=== PATIENT | male | born 1965 | race Caucasian/White ===

== ENCOUNTER → 2021-01-19 10:27 | Outpatient (CLI) | payer OTHER, SELFPAY ==
--- NOTE | 2021-01-19 10:29 | DI.RAD.S_ITS ---
PROCEDURE: XR HAND RT MIN 3V INDICATIONS: joint pain TECHNIQUE: 3 views of the hand(s) acquired. COMPARISON: None. FINDINGS: Bones: No fractures or dislocations. Carpal bones are normally aligned. No suspicious bony lesions. Soft tissues: No suspicious soft tissue calcifications. IMPRESSION: No acute osseous abnormality. Dictated by: Yovani Ruano M.D. on 01/19/2021 at 11:55 Approved by: Yovani Ruano M.D. on 01/19/2021 at 11:56
--- NOTE | 2021-01-19 10:29 | DI.RAD.S_ITS ---
PROCEDURE: XR HAND LT MIN 3V INDICATIONS: joint pain TECHNIQUE: 3 views of the hand(s) acquired. COMPARISON: None. 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 No acute, displaced fracture or dislocation.. Carpal bones are normally aligned. No suspicious bony lesions. Soft tissues: No suspicious soft tissue calcifications. IMPRESSION: No acute osseous abnormality. Dictated by: Yovani Ruano M.D. on 01/19/2021 at 11:54 Approved by: Yovani Ruano M.D. on 01/19/2021 at 11:55
[2021-01-19 11:48] LABS: Add Manual Diff / Slide Review NO; Basophils Absolute Auto 0 /uL (0-100); Basophils Percent Auto 0.6 % (0-2); Eosinophils Absolute Auto 100 /uL (0-450); Eosinophils Percent Auto 1.8 % (2-4); Hematocrit 39.3 % (41-53); Hemoglobin 13.4 g/dL (13.5-17.5); Lymphocytes Absolute Auto 1400 /uL (1100-4500); Lymphocytes Percent Auto 27.2 % (25-40); Mean Corpuscular HGB Conc 34.1 % (30-36); Mean Corpuscular Hemoglobin 30.8 PG (26-34); Mean Corpuscular Volume 90.5 fL (80-100); Monocytes Absolute Auto 500 /uL (0-900); Monocytes Percent Auto 8.9 % (3-14); Neutrophils Absolute Auto 3100 /uL (1500-7000); Neutrophils Percent Auto 61.5 % (50-75); Platelet Count 225 X10^3/uL (150-400); Red Blood Cell Count 4.34 X10^6/uL (4.5-5.9); Red Cell Distribution Width 13.4 % (11.6-14.8); White Blood Cell Count 5.1 X10^3/uL (4.5-11.0)
[2021-01-19 12:14] LABS: Alanine Aminotransferase 44 IU/L (<50); Albumin 4.2 g/dL (3.5-5.0); Albumin Globulin Ratio 1.6 (1.0-2.8); Alkaline Phosphatase 89 U/L (38-126); Aspartate Aminotransferase 55 IU/L (17-59); BUN Creatinine Ratio 26.1 (6-22); Bilirubin Total 0.3 mg/dL (0.2-1.3); Blood Urea Nitrogen 23 mg/dL (9-20); C-Reactive Protein Quant 1.5 mg/dL (<1.0); Carbon Dioxide 31 mmol/L (22-32); Chloride 103 mmol/L (98-107); Cholesterol 197 mg/dL (140-199); Estimated Glomerular Filt Rate > 60.0 mL/min (>60); Globulin 2.6 g/dL (1.7-4.1); Glucose 102 mg/dL (70-100); HDL Cholesterol 52 mg/dL (40-60); HEMOLYSIS < 15 (0-50); LDL Cholesterol Calculated 107 mg/dL (<100); Potassium 4.5 mmol/L (3.4-5.1); Sodium 140 mmol/L (137-145); Total Protein 6.8 g/dL (6.3-8.2); Triglycerides 192 mg/dL (35-150)
[2021-01-19 12:29] LABS: Erythrocyte Sedimentation Rate 13 MM/HR (0-15)
[2021-01-19 12:39] LABS: TSH w/ Reflex to FT4 1.65 uIU/mL (0.47-4.68)
== END ==
PROVIDERS: PCP Family Medicine; Referring Provider Family Medicine; Visit Provider Family Medicine
DX: L40.50 Arthropathic psoriasis, unspecified (principal); K14.0 Glossitis; M25.542 Pain in joints of left hand; M25.541 Pain in joints of right hand
CPT/HCPCS: 36415; 73130; 80053; 80061; 84443; 85025; 85651; 86140; 86160

== ENCOUNTER → 2021-04-02 07:39 | Outpatient (CLI) | payer OTHER, SELFPAY ==
--- NOTE | 2021-04-02 07:42 | DI.MRI.S_ITS ---
PROCEDURE: MR HEAD/BRAIN WO CON INDICATIONS: coordination of left hand, tongue swelling, tremor TECHNIQUE: Noncontrast axial T1 spin echo, axial T2 fast spin echo, sagittal and axial FLAIR, coronal T2 fast spin echo, axial gradient echo, axial diffusion and ADC through the brain. COMPARISON: None. FINDINGS: Image quality: Excellent. CSF Spaces: Basal cisterns are patent. No extra-axial fluid collections. Ventricles are normal in size and shape. Brain: No intracranial masses or hemorrhage. Foci of increased T2 signal noted in the periventricular and corpus callosum white matter. T2 signal abnormality in the left parietal periventricular white matter has a longitudinal orientation perpendicular to the long axis of the lateral ventricles. Punctate foci of increased T2 signal noted in the left middle cerebellar hemisphere and the right yaron. Huang/white matter interface is normal. Brainstem appears normal. Diffusion-weighted images demonstrate no acute ischemic insult. No chronic ischemic insults. Normal intravascular flow voids are present. Skull and face: Calvarium has normal marrow signal. Orbits appear normal. Sinuses: Sinuses and mastoids are clear. IMPRESSION: Foci of increased T2 signal involving the corpus callosum, periventricular white matter, left middle cerebellar peduncle and right yaron. Lesions have imaging characteristics highly suspicious for multiple sclerosis. Dictated by: Jamilah Weir MD, PhD on 04/02/2021 at 8:33 Approved by: Jamilah Weir MD, PhD on 04/02/2021 at 8:42
== END ==
PROVIDERS: PCP Family Medicine; Referring Provider Family Medicine; Visit Provider Family Medicine
DX: R25.1 Tremor, unspecified (principal); R27.8 Other lack of coordination
CPT/HCPCS: 70551

== ENCOUNTER 2021-04-02 09:55 | Emergency (ER) | payer OTHER, SELFPAY ==
[2021-04-02] VITALS (9 sets, daily range): BP systolic 114–143; BP diastolic 70–80; PULSE 64–78; RESP 18–22; TEMP 36.6; O2SAT 92–100; BMI 27.8
--- NOTE | 2021-04-02 10:02 | DI.RAD.S_ITS ---
PROCEDURE: XR CHEST 1V INDICATIONS: arm pain, chest pain TECHNIQUE: One view of the chest was acquired. COMPARISON: None. FINDINGS: Surgical changes and devices: None. Lungs and pleura: No consolidation, pleural effusions or pneumothorax. Mediastinum: Mediastinal contours appear normal. Heart size is normal. Bones and chest wall: No suspicious bony lesions. Overlying soft tissues appear unremarkable. IMPRESSION: No acute cardiopulmonary abnormality. Dictated by: Yovani Ruano M.D. on 04/02/2021 at 10:11 Approved by: Yovani Ruano M.D. on 04/02/2021 at 10:11
[2021-04-02] MEDS: LORazepam 2 MG/ML INJ 0.5 MG IV (10:12)
[2021-04-02 10:28] LABS: Add Manual Diff / Slide Review NO; Basophils Absolute Auto 0 /uL (0-100); Basophils Percent Auto 0.6 % (0-2); Eosinophils Absolute Auto 0 /uL (0-450); Eosinophils Percent Auto 0.4 % (2-4); Hematocrit 42.1 % (41-53); Hemoglobin 14.6 g/dL (13.5-17.5); Lymphocytes Absolute Auto 1200 /uL (1100-4500); Lymphocytes Percent Auto 22.9 % (25-40); Mean Corpuscular HGB Conc 34.6 % (30-36); Mean Corpuscular Hemoglobin 31.1 PG (26-34); Mean Corpuscular Volume 89.7 fL (80-100); Monocytes Absolute Auto 200 /uL (0-900); Monocytes Percent Auto 4.5 % (3-14); Neutrophils Absolute Auto 3800 /uL (1500-7000); Neutrophils Percent Auto 71.6 % (50-75); Platelet Count 228 X10^3/uL (150-400); White Blood Cell Count 5.4 X10^3/uL (4.5-11.0)
[2021-04-02 10:37] LABS: Alanine Aminotransferase 22 IU/L (<50); Albumin 4.6 g/dL (3.5-5.0); Albumin Globulin Ratio 1.7 (1.0-2.8); Alkaline Phosphatase 78 U/L (38-126); Aspartate Aminotransferase 27 IU/L (17-59); BUN Creatinine Ratio 13.5 (6-22); Bilirubin Total 0.7 mg/dL (0.2-1.3); Blood Urea Nitrogen 14 mg/dL (9-20); Calcium 9.5 mg/dL (8.4-10.2); Carbon Dioxide 20 mmol/L (22-32); Chloride 107 mmol/L (98-107); Estimated Glomerular Filt Rate > 60.0 mL/min (>60); Globulin 2.7 g/dL (1.7-4.1); Glucose 158 mg/dL (70-100); HEMOLYSIS < 15 (0-50); Potassium 3.7 mmol/L (3.4-5.1); Sodium 137 mmol/L (137-145); Total Protein 7.3 g/dL (6.3-8.2)
[2021-04-02 10:49] LABS: Troponin I < 0.012 ng/mL (0.01-0.034)
--- NOTE | 2021-04-02 10:54 | ED.ANXIETY ---
HPI - Anxiety General Chief Complaint: Anxiety Stated Complaint: Panic attack Time Seen by Provider: 04/02/21 10:01 Source: patient Mode of arrival: Wheelchair History of Present Illness HPI narrative: 55-year-old gentleman with allergies, psoriatic arthritis, minor anxiety has been having increasing neurologic complaints for the last 5-6 months. In November started noticing intermittent episodes of worsening gait, dizziness decreasing overall strength. That seem to improve and then he began noticing increasing difficulty with fine motor skills particularly involving his left hand. 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 Will last 6 months he has noticed significant increase in fatigue typically by late afternoon. He has not been gaining or losing weight. He denies occasional sweats but no significant fevers or chills. No nausea vomiting or diarrhea. He does not describe visual changes does note intermittent episodes where he feels like his tongue is either swollen or simply not working right. He contacted his primary care physician with concerns of symptoms and was worried that he in fact had Parkinson's or perhaps a brain tumor. Had an MRI this morning and it is highly suggestive of multiple sclerosis. After having the study and then talking with the diagnosis with his primary care doctor he began having difficulty breathing, chest pain and dramatic increase in anxiety and comes to the emergency room for further evaluation. He denies any palpitations, nausea vomiting or diarrhea. No abdominal pain, headaches, skin rashes. Related Data Home Medications Medication Instructions Recorded Confirmed Multivitamins PO 01/19/21 01/19/21 Previous Rx's Medication Instructions Recorded montelukast 10 mg tablet 10 mg PO DAILY #30 tab 03/25/21 alprazolam 0.25 mg tablet 0.25 mg PO Q6H PRN #20 tab 04/02/21 bupropion HCl 100 mg tablet,12 hr 100 mg PO BID #60 ea 04/02/21 sustained-release (Wellbutrin SR) Allergies Allergy/AdvReac Type Severity Reaction Status Date / Time Penicillins Allergy Verified 04/02/21 10:04 Review of Systems Review of Systems Narrative: Remainder of complete review of systems is otherwise unremarkable except for that included in the HPI. Patient History Medical History Angioedema Chicken pox (~2000) Family history of idiopathic hypertrophic subaortic stenosis Multiple environmental allergies Normal colonoscopy (~01/2011) Psoriasis Psoriatic arthritis (~1989) Surgical History Anesthesia History of colonoscopy (~2009) Family History Father Cancer Mother History of heart disease Grandmother History of emphysema Social History marital status: household members: spouse and children lives independently: Yes caregiver/support person: No housing: house pets and animals: Yes occupational status: employed Smoking Status: Former smoker Tobacco: How many years used: 1 Smoking Status: Former smoker alcohol intake frequency: holidays/special occasions only Substance Use Type: does not use Exam Narrative Exam Narrative: General: Healthy appearing, emotionally upset but Able to give a complete and coherent history. Well-nourished well-developed HEENT: Moist mucous membranes, normal sclera with reactive pupils, Neck: No JVD, supple Respiratory: Lungs are clear to auscultation, no wheezing no rales no rhonchi. Full and symmetrical air movement Cardiac: Regular rate and rhythm no murmurs no bruits Abdomen: Soft, nontender, good bowel tones, no flank pain Skin: Warm and dry, no rashes Neurologic: Mild dysarthria, mild fine motor deficits left hand. Lower extremity reflexes are 2+ the left patella 1+ on the right. Extremities: No trauma, well perfused, no lower extremity edema Psych: Cooperative, appropriate insight and affect Initial Vital Signs Initial Vital Signs: Vital Signs Temperature 97.8 F 04/02/21 10:00 Pulse Rate 68 04/02/21 10:00 Respiratory Rate 22 04/02/21 10:00 Blood Pressure 142/79 H 04/02/21 10:00 Pulse Oximetry 100 04/02/21 10:00 Course Orders Ordered: ED Orders 04/02/21 10:02 XR chest 1V Stat EKG-12 Lead Stat 04/02/21 10:19 Complete Blood Count AUTO DIFF Stat Comprehensive Metabolic Panel Stat Free T3, Triiodothyronine Free Stat T4 Total Thyroxine Stat Thyroid Antibody Panel Stat Thyroid Stimulating Hormone Stat Troponin I Stat Vitamin B12 Stat Vitamin D 25 Hydroxy (D3) Stat 04/02/21 12:39 MR head/brain w con Stat 04/02/21 12:40 MR cervical spine wo/w con Stat Discontinued Medications Methylprednisolone 1,000 mg/ (Dextrose) 258 mls @ 258 mls/hr IV NOW ONE Stop: 04/02/21 14:29 Last Admin: 04/02/21 15:54 Dose: 258 mls/hr Documented by: MONAE Lorazepam (Lorazepam 2 Mg/Ml Inj) 0.5 mg IV NOW ONE Stop: 04/02/21 10:02 Last Admin: 04/02/21 10:12 Dose: 0.5 mg Documented by: ANDREW Vital Signs Vital signs: Vital Signs - 8 hr 04/02/21 10:00 04/02/21 10:14 04/02/21 10:26 Temperature 97.8 F Pulse Rate 68 73 67 Respiratory Rate 22 Blood Pressure 142/79 H 143/80 H Pulse Oximetry 100 99 100 04/02/21 10:30 04/02/21 11:00 04/02/21 11:30 Temperature Pulse Rate 66 64 69 Respiratory Rate Blood Pressure 138/73 114/70 Pulse Oximetry 98 96 94 04/02/21 11:31 04/02/21 12:00 Temperature Pulse Rate 72 78 Respiratory Rate Blood Pressure 141/79 H 128/75 Pulse Oximetry 96 92 MDM - Anxiety Lab Data Result diagrams: 04/02/21 10:19 04/02/21 10:19 Labs: Lab Results 04/02/21 04/02/21 04/02/21 Range/Units 10:19 10:19 10:19 WBC 5.4 (4.5-11.0) X10^3/uL RBC 4.70 (4.5-5.9) X10^6/uL Hgb 14.6 (13.5-17.5) g/dL Hct 42.1 (41-53) % MCV 89.7 (80-100) fL MCH 31.1 (26-34) PG MCHC 34.6 (30-36) % RDW 13.0 (11.6-14.8) % Plt Count 228 (150-400) X10^3/uL Neut % (Auto) 71.6 (50-75) % Lymph % (Auto) 22.9 L (25-40) % Preston % (Auto) 4.5 (3-14) % Eos % (Auto) 0.4 L (2-4) % Baso % (Auto) 0.6 (0-2) % Neut # (Auto) 3800 (2089-3039) /uL Lymph # (Auto) 1200 (6654-8456) /uL Preston # (Auto) 200 (0-900) /uL Eos # (Auto) 0 (0-450) /uL Baso # (Auto) 0 (0-100) /uL Sodium 137 (137-145) mmol/L Potassium 3.7 (3.4-5.1) mmol/L Chloride 107 (98-107) mmol/L Carbon Dioxide 20 L (22-32) mmol/L BUN 14 (9-20) mg/dL Creatinine 1.04 (0.66-1.25) mg/dL Estimated GFR > 60.0 (>60) mL/min BUN/Creatinine Ratio 13.5 (6-22) Glucose 158 H (70-100) mg/dL Calcium 9.5 (8.4-10.2) mg/dL Total Bilirubin 0.7 (0.2-1.3) mg/dL AST 27 (17-59) IU/L ALT 22 (<50) IU/L Alkaline Phosphatase 78 (38-126) U/L Troponin I < 0.012 (0.01-0.034) ng/mL Total Protein 7.3 (6.3-8.2) g/dL Albumin 4.6 (3.5-5.0) g/dL Globulin 2.7 (1.7-4.1) g/dL Albumin/Globulin Ratio 1.7 (1.0-2.8) Vitamin B12 (239-931) pg/mL 25-OH Vitamin D Total (30.0-100.0) ng/mL TSH 2.03 (0.47-4.68) uIU/mL Thyroxine (T4) 9.84 (5.5-11.0) ug/dL Free T3 4.17 (2.77-5.27) pg/mL 04/02/21 04/02/21 Range/Units 10:19 10:19 WBC (4.5-11.0) X10^3/uL RBC (4.5-5.9) X10^6/uL Hgb (13.5-17.5) g/dL Hct (41-53) % MCV (80-100) fL MCH (26-34) PG MCHC (30-36) % RDW (11.6-14.8) % Plt Count (150-400) X10^3/uL Neut % (Auto) (50-75) % Lymph % (Auto) (25-40) % Preston % (Auto) (3-14) % Eos % (Auto) (2-4) % Baso % (Auto) (0-2) % Neut # (Auto) (8262-7724) /uL Lymph # (Auto) (3379-2993) /uL Preston # (Auto) (0-900) /uL Eos # (Auto) (0-450) /uL Baso # (Auto) (0-100) /uL Sodium (137-145) mmol/L Potassium (3.4-5.1) mmol/L Chloride (98-107) mmol/L Carbon Dioxide (22-32) mmol/L BUN (9-20) mg/dL Creatinine (0.66-1.25) mg/dL Estimated GFR (>60) mL/min BUN/Creatinine Ratio (6-22) Glucose (70-100) mg/dL Calcium (8.4-10.2) mg/dL Total Bilirubin (0.2-1.3) mg/dL AST (17-59) IU/L ALT (<50) IU/L Alkaline Phosphatase (38-126) U/L Troponin I (0.01-0.034) ng/mL Total Protein (6.3-8.2) g/dL Albumin (3.5-5.0) g/dL Globulin (1.7-4.1) g/dL Albumin/Globulin Ratio (1.0-2.8) Vitamin B12 287 (239-931) pg/mL 25-OH Vitamin D Total 33.2 (30.0-100.0) ng/mL TSH (0.47-4.68) uIU/mL Thyroxine (T4) (5.5-11.0) ug/dL Free T3 (2.77-5.27) pg/mL Imaging Data MRI brain: Radiologist's Impression: FINDINGS:? Image quality:? Excellent.? ? CSF Spaces:? Basal cisterns are patent.? No extra-axial fluid collections.? Ventricles are normal in size and shape.? ? Brain:? No intracranial masses or hemorrhage.? Foci of increased T2 signal noted in the periventricular and corpus callosum white matter.? T2 signal abnormality in the left parietal periventricular white matter has a longitudinal orientation perpendicular to the long axis of the lateral ventricles.? Punctate foci of increased T2 signal noted in the left middle cerebellar hemisphere and the right yaron.? Huang/white matter interface is normal.? Brainstem appears normal.? Diffusion-weighted images demonstrate no acute ischemic insult.? No chronic ischemic insults.? Normal intravascular flow voids are present.? ? Skull and face:? Calvarium has normal marrow signal.? Orbits appear normal.? ? Sinuses:? Sinuses and mastoids are clear.? ? IMPRESSION:? Foci of increased T2 signal involving the corpus callosum, periventricular white matter, left middle cerebellar peduncle and right yaron.? Lesions have imaging characteristics highly suspicious for multiple sclerosis. ? ? Dictated by: Jamilah Weir MD, PhD on 04/02/2021 at 8:33 ? ? With contrast: FINDINGS:? Image quality:? Excellent.? ? No abnormal intracranial enhancement.? Specifically, the high FLAIR signal intensity foci seen by same-day MRI demonstrate no evidence of enhancement. ? IMPRESSION:? No abnormal intracranial enhancement. ? ? Dictated by: Lea Yancey M.D. on 04/02/2021 at 15:49 ? ? MR cervical spine with and without contrast: Radiologist's Impression: FINDINGS:? Image quality:? Excellent.? ? Alignment and curvature:? There is loss of normal cervical lordosis.? Mild grade 1 retrolisthesis of C3 on C4. ? Marrow:? Marrow demonstrates normal overall signal.? Mild reactive signal throughout the endplates of the cervical and upper thoracic spine. ? Spinal cord:? Visualized spinal cord is normal in size, without white matter lesions.? No suspicious intramedullary enhancement.? No cerebellar tonsillar herniation.? ? Paraspinous soft tissues:? No paravertebral masses or suspicious enhancement.? ? C2-C3:? Moderate disc desiccation.? Mild facet and uncovertebral hypertrophy.? No significant canal, or foraminal stenosis. ? C3-C4:? Mild disc height loss.? Moderate disc desiccation.? Mild diffuse disc bulge with superimposed broad-based left posterolateral protrusion.? Congenital canal stenosis.? Mild facet and uncovertebral hypertrophy.? Moderate canal stenosis.? Moderate left and mild right foraminal stenosis. ? C4-C5:? Moderate disc height loss and desiccation.? Mild diffuse disc bulge.? Moderate right and mild left facet and uncovertebral hypertrophy.? Congenital canal stenosis.? Moderate canal stenosis.? Severe right and mild left foraminal stenosis.? Right C5 nerve root compression. ? C5-C6:? Congenital canal stenosis.? Moderate disc height loss and desiccation.? Mild diffuse disc bulge with superimposed right paracentral protrusion.? Moderate right and mild left facet and uncovertebral hypertrophy.? Moderate to severe canal stenosis.? Mild right cord flattening.? Severe right and mild left foraminal stenosis.? Right C6 nerve root compression. ? C6-C7:? Moderate disc desiccation.? Mild disc height loss and diffuse disc bulge.? Mild facet and uncovertebral hypertrophy bilaterally.? Congenital canal stenosis.? Moderate canal stenosis.? Severe right and moderate left foraminal stenosis.? Right C7 nerve root compression. ? C7-T1:? Mild disc desiccation and diffuse disc bulge with superimposed broad-based central protrusion.? Mild facet and uncovertebral hypertrophy bilaterally.? Mild canal stenosis.? Mild right greater than left foraminal stenosis. ? IMPRESSION:? 1. No evidence of multiple sclerosis within the cervical cord. 2. Diffuse congenital canal stenosis with superimposed disc and facet disease, as well as uncovertebral hypertrophy. 3. Multilevel canal stenoses, worst at C5-C6, where there is mild cord flattening. 4. Multilevel foraminal stenoses, worst at C4-C5, C5-C6, and C6-C7 where there is associated intraforaminal nerve root compression. Recommend correlation with clinical symptoms to ascertain relevance of these findings.? ? ? Dictated by: Lea Yancey M.D. on 04/02/2021 at 15:51 ? Clinical correlation: Right C5-C6 C7 nerve root compression noted on scan, left-sided hand weakness/clumsiness is patient complaint Chest x-ray: Radiologist's Impression: FINDINGS:? ? Surgical changes and devices:? None.? ? Lungs and pleura:? No consolidation, pleural effusions or pneumothorax.? ? Mediastinum:? Mediastinal contours appear normal.? Heart size is normal.? ? Bones and chest wall:? No suspicious bony lesions.? Overlying soft tissues appear unremarkable.? ? IMPRESSION:? No acute cardiopulmonary abnormality. ? ? Dictated by: Yovani Ruano M.D. on 04/02/2021 at 10:11 ?? ECG Data Interpretation: Sinus rhythm, rate of 74 normal axis, normal intervals No acute ischemic changes MDM Narrative Medical decision making narrative: 55-year-old gentleman with intermittent progressive symptoms weakness, dizziness, gait instability and increasing fine motor difficulty issues with the right hand as well as intermittent episodes of dysarthria for the last 4-6 months. MRI this morning suggests multiple sclerosis with increased T2 signal in the corpus callosum, periventricular white matter, left middle cerebellar peduncle and the right yaron. Brainstem does appear to be normal. After hearing the diagnosis patient had what appears to be a panic attack and was seen in the emergency department. He has calmed nicely after IV Ativan. Lab work is unremarkable. There is no evidence of Parkinson's disease on clinical exam, no brain tumor, no left to light abnormalities. No evidence of infectious etiology. Consult with Neurology, Dr Gallegos at [facility]. Recommendations: MR brain with contrast (without contrast was done today) MR with and without contrast C-spine to labs please add vitamin-D, B12, TSH and thyroid antibodies Once contrast MRI is have been completed, 1 g of IV Solu-Medrol daily for 3 days beginning today Consider adding Wellbutrin for depression as well as fatigue. Patient had had a discussion with his primary care provider recently regarding depression and mood lability and a prescription for Zoloft was called in but he has not yet picked it up. Will change that to Wellbutrin based on Neurology recommendations. Called [facility] to see if we could arrange for outpatient infusion. Unfortunately there infusion clinic is closed, I do not have privileging to order outpatient studies for their emergency department and there is not adequate time to obtain referral authorization. Will ask him to return to the emergency department as an emergency department patient on April 03 and April 04 for IV infusions of 1 g of Solu-Medrol Findings, plans, recommendations, medication changes, labs and recommendation to go to the emergency department tomorrow and the following day are reviewed with the patient his and all questions are answered. He has a peripheral IV in his left wrist and this will be secured and he will be discharged with this IV in anticipation of infusion tomorrow. Discharge Plan Departure Patient Disposition: Home Clinical Impression: Multiple sclerosis with acute neurologic event, Panic attack, Depression, Fatigue Instructions: DI for Multiple Sclerosis, DI for Anxiety -- Adult Activity Restrictions/Additional Instructions: Thank you for coming in today. I am glad that we have a diagnosis for the symptoms that you been having over the last number of months, I am glad that it is not cancer but I am sorry that it is multiple sclerosis. I have spoken with , neurologist with [facility]. He recommended MR studies of the brain and cervical spine both with and without contrast so these were done in the emergency department. I have given you copies of the report to share with the neurologist. He recommended 1 g of IV Solu-Medrol today, 1231 and 03 04. Your given 1 g today and we left her IV in place. I spoke with staff at the emergency department in [place]. Tomorrow, in the afternoon, you need to check into the emergency department at [place] for your 2nd dose of Solu-Medrol and you will need to repeat that on April 04. Dr Gallegos suggested Wellbutrin to help with fatigue and depression symptoms that are common with multiple sclerosis. I am going to ask you to not fill the Zoloft prescription that Dr. Dejesus prescribe. I have sent a prescription for Wellbutrin SR 100 mg tablets a.m. and p.m. to [facility]. I left a message with Dr. Dejesus to let her know the additional workup, findings and plan. Please call to schedule follow-up appointment with Dr. Dejesus in the next 2-3 weeks regarding the Wellbutrin. Please expect to hear from [facility] to set up a initial appointment with Dr Gallegos in the next 3-4 weeks. You will be given a disk with the MRI studies and printouts of your lab work. Please share all of this with Dr Gallegos when you meet with him. I wish you the very best Prescriptions: New bupropion HCl [Wellbutrin SR] 100 mg tablet sustained-release 12 hr 100 mg PO BID Qty: 60 0RF No Action alprazolam 0.25 mg tablet 0.25 mg PO Q6H PRN (Reason: anxiety) Qty: 20 0RF Multivitamins PO 0RF montelukast 10 mg tablet 10 mg PO DAILY Qty: 30 0RF Referrals: Therese Dejesus DO [Primary Care Provider] -
--- NOTE | 2021-04-02 12:39 | DI.MRI.S_ITS ---
PROCEDURE: MR HEAD/BRAIN W CON INDICATIONS: new MS diagnosis TECHNIQUE: Fat saturated T1 sequences of the brain are performed. Date is reconstructed in sagittal, axial, and coronal sections. COMPARISON: [facility], , MR HEAD/BRAIN WO CON, 04/02/2021, 7:59. FINDINGS: Image quality: Excellent. No abnormal intracranial enhancement. Specifically, the high FLAIR signal intensity foci seen by same-day MRI demonstrate no evidence of enhancement. IMPRESSION: No abnormal intracranial enhancement. Dictated by: Lea Yancey M.D. on 04/02/2021 at 15:49 Approved by: Lea Yancey M.D. on 04/02/2021 at 15:50
--- NOTE | 2021-04-02 12:40 | DI.MRI.S_ITS ---
PROCEDURE: MR CERVICAL SPINE WO/W CON INDICATIONS: new MS, symptomatic TECHNIQUE: Noncontrast sagittal T1 spin echo and T2 fast spin echo, sagittal STIR, sagittal PD fast spin echo, foraminal oblique sagittal T2 fast spin echo, axial gradient echo or T2 fast spin echo through the cervical spine. After the administration of contrast, sagittal and axial T1 spin echo with fat saturation through the cervical spine. COMPARISON: [facility], MR, MR HEAD/BRAIN WO CON, 04/02/2021, 7:59. FINDINGS: Image quality: Excellent. Alignment and curvature: There is loss of normal cervical lordosis. Mild grade 1 retrolisthesis of C3 on C4. Marrow: Marrow demonstrates normal overall signal. Mild reactive signal throughout the endplates of the cervical and upper thoracic spine. Spinal cord: Visualized spinal cord is normal in size, without white matter lesions. No suspicious intramedullary enhancement. No cerebellar tonsillar herniation. Paraspinous soft tissues: No paravertebral masses or suspicious enhancement. C2-C3: Moderate disc desiccation. Mild facet and uncovertebral hypertrophy. No significant canal, or foraminal stenosis. C3-C4: Mild disc height loss. Moderate disc desiccation. Mild diffuse disc bulge with superimposed broad-based left posterolateral protrusion. Congenital canal stenosis. Mild facet and uncovertebral hypertrophy. Moderate canal stenosis. Moderate left and mild right foraminal stenosis. C4-C5: Moderate disc height loss and desiccation. Mild diffuse disc bulge. Moderate right and mild left facet and uncovertebral hypertrophy. Congenital canal stenosis. Moderate canal stenosis. Severe right and mild left foraminal stenosis. Right C5 nerve root compression. C5-C6: Congenital canal stenosis. Moderate disc height loss and desiccation. Mild diffuse disc bulge with superimposed right paracentral protrusion. Moderate right and mild left facet and uncovertebral hypertrophy. Moderate to severe canal stenosis. Mild right cord flattening. Severe right and mild left foraminal stenosis. Right C6 nerve root compression. C6-C7: Moderate disc desiccation. Mild disc height loss and diffuse disc bulge. Mild facet and uncovertebral hypertrophy bilaterally. Congenital canal stenosis. Moderate canal stenosis. Severe right and moderate left foraminal stenosis. Right C7 nerve root compression. C7-T1: Mild disc desiccation and diffuse disc bulge with superimposed broad-based central protrusion. Mild facet and uncovertebral hypertrophy bilaterally. Mild canal stenosis. Mild right greater than left foraminal stenosis. IMPRESSION: 1. No evidence of multiple sclerosis within the cervical cord. 2. Diffuse congenital canal stenosis with superimposed disc and facet disease, as well as uncovertebral hypertrophy. 3. Multilevel canal stenoses, worst at C5-C6, where there is mild cord flattening. 4. Multilevel foraminal stenoses, worst at C4-C5, C5-C6, and C6-C7 where there is associated intraforaminal nerve root compression. Recommend correlation with clinical symptoms to ascertain relevance of these findings. Dictated by: Lea Yancey M.D. on 04/02/2021 at 15:51 Approved by: Lea Yancey M.D. on 04/02/2021 at 15:55
[2021-04-02 13:37] LABS: Free T3, Triiodothyronine Free 4.17 pg/mL (2.77-5.27); T4 Total Thyroxine 9.84 ug/dL (5.5-11.0); Vitamin D 25 Hydroxy (D3) 33.2 ng/mL (30.0-100.0)
[2021-04-02 13:50] LABS: Thyroid Stimulating Hormone 2.03 uIU/mL (0.47-4.68)
[2021-04-02 14:10] LABS: Vitamin B12 287 pg/mL (239-931)
[2021-04-02] MEDS: WATER IV (15:54)
[2021-04-02] MEDS: DEXTROSE 5% IV (15:54)
[2021-04-02] MEDS: METHYLPREDNISOLONE IV (15:54)
[2021-04-07 23:36] LABS: Anti Thyroglobulin Antibody <1.0 IU/mL (0.0-0.9); Thyroid Peroxidase Antibodies 14 IU/mL (0-34)
== END 2021-04-02 17:36 | disposition home or self-care (01) ==
PROVIDERS: Emergency Provider Emergency Medicine; PCP Family Medicine
DX: F41.0 Panic disorder [episodic paroxysmal anxiety] (principal); G35 Multiple sclerosis; R03.0 Elevated blood-pressure reading, without diagnosis of hypertension; R25.1 Tremor, unspecified; R27.8 Other lack of coordination
CPT/HCPCS: 36415; 70551; 70552; 71045; 72156; 80053; 82306; 82607; 84436; 84443; 84481; 84484; 85025; 86376; 86800; 93005; 96365; 96375; 99284; A9579; J2060; J2930

== ENCOUNTER → 2021-07-10 14:04 | Outpatient (CLI) | payer OTHER, SELFPAY ==
--- NOTE | 2021-07-10 14:07 | DI.ECHO.S_ITS ---
[facility]+ [facility] +---------+ : : [address] : : : : [id number] : : : : Phone: [phone]+ Echocardiogram Report + + :Name: RIZWANA COOK Study Date: 07/10/2021 Height: 72 in : :[facility] ReadingLocation: Weight: 205 lb : : Gender: Male BSA: 2.2 m2 : :: 1965 Age: 55 yrs BP: 139/87 mmHg: :Reason For Study: fatigue, family history of heart disease : : Performed By: Alexus Palma : :Referring: RIGOBERTO BEAVERS : + + Interpretation Summary The ejection fraction is estimated to be 65-70%. Diastolic function could not be accurately assessed due to contradictory data. The right ventricular systolic function is normal. No significant valvular abnormalities. Pulmonary artery pressures cannot be estimated because of the lack of a measurable TR jet velocity. Procedure: A two-dimensional transthoracic echocardiogram with color flow and Doppler was performed. The study quality was technically adequate. There is no prior echocardiogram noted for this patient. The patient was in normal sinus rhythm during the exam. Left Ventricle: The left ventricle appears normal in size, wall thickness, and systolic function without any focal wall motion abnormalities. A false chord is noted (normal variant). The ejection fraction is estimated to be 65- 70%. Diastolic function could not be accurately assessed due to contradictory data. Right Ventricle: The right ventricle is normal size. The right ventricular systolic function is normal. Atria: Both atria are mildly dilated. There is no Doppler evidence for an interatrial shunt. Mitral Valve: The mitral valve is normal in structure and function. There is trace mitral regurgitation. Aortic Valve: The aortic valve is trileaflet. There is no aortic valve stenosis. No aortic regurgitation is present. Tricuspid Valve: The tricuspid valve is normal in structure and function. There is a trace or physiologic amount of tricuspid regurgitation. Pulmonary artery pressures cannot be estimated because of the lack of a measurable TR jet velocity. Pulmonic Valve: The pulmonic valve is normal in structure and function. There is mild pulmonic regurgitation. Great Vessels: The aortic root is normal size. The ascending aorta is normal in size. The aortic arch is mildly enlarged. The pulmonary artery is normal size. The IVC is of normal diameter and collapses greater than 50% with a sniff. This suggests a low right atrial pressure of 3 mm Hg. Pericardium/ Pleura There is no pericardial effusion. There is no pleural effusion. MMode/2D Measurements & Calculations LVIDd: 4.9 cm LVOT diam: 2.2 cm LVIDs: 2.8 cm Ao root diam: 3.3 cm FS: 43.2 % asc Aorta Diam: 3.4 cm EPSS: 0.16 cm Ao Arch Diam (Prox Trans): 3.3 cm IVSd: 0.98 cm LVPWd: 0.96 cm LV marc. diameter/BSA (cm/m^2): 2.3 LV sys. diameter/BSA (cm/m^2): 1.3 LA A2 area: 24.1 cm2 RA long axis: 5.6 cm LA A4 area: 22.9 cm2 RA area: 23.1 cm2 LA length (vol): 6.2 cm RA vol: 81.2 ml LA vol: 75.7 ml RA : 37.7 ml/m2 LA vol index: 35.2 ml/m2 IVC diam: 2.1 cm RVD1 (basal): 4.2 cm TAPSE: 1.9 cm Doppler Measurements & Calculations Ao V2 max: 213.7 cm/sec LVOT Max Tommy: 146.4 cm/sec Ao V2 mean: 141.3 cm/sec LV V1 max P.6 mmHg Ao max P.3 mmHg LV V1 VTI: 27.8 cm Ao mean P.9 mmHg RAJINDER(I,D): 2.5 cm2 Ao V2 VTI: 40.7 cm RAJINDER(V,D): 2.5 cm2 sev ratio: 0.68 RAJINDER indexed to BSA (cm^2/m^2): 1.2 MV E max tommy: 72.3 cm/sec TR max tommy: 208.1 cm/sec MV A max tommy: 72.8 cm/sec TR max P.3 mmHg MV E/A: 0.99 Med Peak E' Tommy: 9.8 cm/sec E/E' med: 7.4 Lat Peak E' Tommy: 10.5 cm/sec E/E' lat: 6.9 E/e' average: 7.1 MV P1/2t: 83.5 msec MV P1/2t max tommy: 72.3 cm/sec SV(LVOT): 102.8 ml MVA(P1/2t): 2.6 cm2 Reading Physician:05:29 PM
== END ==
PROVIDERS: PCP Family Medicine; Referring Provider Family Medicine; Visit Provider Family Medicine
DX: I37.1 Nonrheumatic pulmonary valve insufficiency (principal); I77.89 Other specified disorders of arteries and arterioles; R53.83 Other fatigue; R53.1 Weakness; Z82.49 Family history of ischemic heart disease and other diseases of the circulatory system
CPT/HCPCS: 93306

== ENCOUNTER → 2023-09-08 10:21 | Outpatient (CLI) | payer OTHER, SELFPAY ==
[2023-09-08 11:22] LABS: Add Manual Diff / Slide Review NO; Basophils Absolute Auto 0 /uL (0-100); Basophils Percent Auto 0.6 % (0-2); Eosinophils Absolute Auto 0 /uL (0-450); Eosinophils Percent Auto 0.7 % (2-4); Hemoglobin 14.8 g/dL (13.5-17.5); Lymphocytes Absolute Auto 1000 /uL (1100-4500); Lymphocytes Percent Auto 19.4 % (25-40); Mean Corpuscular HGB Conc 34.4 % (30-36); Mean Corpuscular Hemoglobin 31.6 PG (26-34); Mean Corpuscular Volume 91.7 fL (80-100); Monocytes Absolute Auto 500 /uL (0-900); Monocytes Percent Auto 8.6 % (3-14); Neutrophils Absolute Auto 3700 /uL (1500-7000); Neutrophils Percent Auto 70.7 % (50-75); Platelet Count 242 X10^3/uL (150-400); Red Blood Cell Count 4.69 X10^6/uL (4.5-5.9); Red Cell Distribution Width 13.3 % (11.6-14.8); White Blood Cell Count 5.3 X10^3/uL (4.5-11.0)
[2023-09-08 11:49] LABS: Alanine Aminotransferase 45 IU/L (<50); Albumin 4.7 g/dL (3.5-5.0); Alkaline Phosphatase 84 U/L (38-126); Aspartate Aminotransferase 40 IU/L (17-59); BUN Creatinine Ratio 18.9 (6-22); Bilirubin Total 0.8 mg/dL (0.2-1.3); Blood Urea Nitrogen 18 mg/dL (9-20); Calcium 9.3 mg/dL (8.4-10.2); Carbon Dioxide 29 mmol/L (22-32); Chloride 105 mmol/L (98-107); Cholesterol 234 mg/dL (140-199); Estimated Glomerular Filt Rate > 60 mL/min (>60); Globulin 2.4 g/dL (1.7-4.1); Glucose 120 mg/dL (70-100); HDL Cholesterol 70 mg/dL (40-60); HEMOLYSIS < 15 (0-50); LDL Cholesterol Calculated 138 mg/dL (<100); Potassium 4.4 mmol/L (3.4-5.1); Sodium 141 mmol/L (137-145); Total Protein 7.1 g/dL (6.3-8.2); Triglycerides 131 mg/dL (35-150)
[2023-09-08 11:54] LABS: High Sensitivity CRP - Cardiac 1.6 mg/L (1.0-3.0)
[2023-09-08 12:12] LABS: TSH w/ Reflex to FT4 2.06 uIU/mL (0.47-4.68)
[2023-09-08 12:13] LABS: Prostate Specific Antigen Scrn 1.07 ng/mL (0.1-4.0)
[2023-09-08 15:46] LABS: Vitamin D 25 Hydroxy (D3) 44.2 ng/mL (30.0-100.0)
[2023-09-13 10:10] LABS: Estradiol, Sensitive 12.8 pg/mL (8.0-35.0)
[2023-09-15 06:06] LABS: Percent Free Testosterone 2.62 % (1.50-4.20); Testosterone Free 7.45 ng/dL (5.00-21.00); Testosterone Total 284.5 ng/dL (264.0-916.0)
== END ==
LOC: LAB 10:22
PROVIDERS: PCP Family Medicine; Referring Provider Family Medicine; Visit Provider Family Medicine
DX: D64.9 Anemia, unspecified (principal); G35 Multiple sclerosis; E78.5 Hyperlipidemia, unspecified; R53.83 Other fatigue; E34.9 Endocrine disorder, unspecified; Z12.5 Encounter for screening for malignant neoplasm of prostate
CPT/HCPCS: 36415; 80053; 80061; 82306; 82670; 84402; 84403; 84443; 85025; 86140; G0103

== ENCOUNTER → 2024-04-06 10:23 | Outpatient (CLI) | payer OTHER, SELFPAY ==
[2024-04-06 11:04] LABS: Alanine Aminotransferase 73 IU/L (<50); Albumin 4.6 g/dL (3.5-5.0); Albumin Globulin Ratio 2.4 (1.0-2.8); Alkaline Phosphatase 86 U/L (38-126); Aspartate Aminotransferase 49 IU/L (17-59); BUN Creatinine Ratio 13.7 (6-22); Bilirubin Total 0.5 mg/dL (0.2-1.3); Blood Urea Nitrogen 14 mg/dL (9-20); Calcium 9.7 mg/dL (8.4-10.2); Carbon Dioxide 31 mmol/L (22-32); Chloride 103 mmol/L (98-107); Estimated Glomerular Filt Rate > 60 mL/min (>60); Globulin 1.9 g/dL (1.7-4.1); Glucose 106 mg/dL (70-100); HEMOLYSIS < 15 (0-50); Potassium 4.4 mmol/L (3.4-5.1); Sodium 140 mmol/L (137-145); Total Protein 6.5 g/dL (6.3-8.2)
[2024-04-06 11:08] LABS: Add Manual Diff / Slide Review NO; Basophils Absolute Auto 0 /uL (0-100); Basophils Percent Auto 0.5 % (0-2); Eosinophils Absolute Auto 0 /uL (0-450); Eosinophils Percent Auto 0.5 % (2-4); Hematocrit 44.9 % (41-53); Hemoglobin 15.2 g/dL (13.5-17.5); Lymphocytes Absolute Auto 1000 /uL (1100-4500); Lymphocytes Percent Auto 18.4 % (25-40); Mean Corpuscular HGB Conc 33.8 % (30-36); Mean Corpuscular Hemoglobin 30.8 PG (26-34); Monocytes Absolute Auto 300 /uL (0-900); Neutrophils Absolute Auto 4200 /uL (1500-7000); Neutrophils Percent Auto 74.6 % (50-75); Platelet Count 273 X10^3/uL (150-400); Red Blood Cell Count 4.93 X10^6/uL (4.5-5.9); Red Cell Distribution Width 13.5 % (11.6-14.8); White Blood Cell Count 5.6 X10^3/uL (4.5-11.0)
[2024-04-06 11:21] LABS: Vitamin D 25 Hydroxy (D3) 56.5 ng/mL (30.0-100.0)
== END ==
LOC: LAB 10:24
PROVIDERS: PCP Family Medicine; Referring Provider Family Medicine; Visit Provider Family Medicine
DX: E55.9 Vitamin D deficiency, unspecified (principal); D64.89 Other specified anemias; G35 Multiple sclerosis; F06.32 Mood disorder due to known physiological condition with major depressive-like episode; Z82.49 Family history of ischemic heart disease and other diseases of the circulatory system; E29.1 Testicular hypofunction
CPT/HCPCS: 36415; 80053; 82306; 84402; 84403; 85025

== ENCOUNTER → 2024-06-15 12:45 | Outpatient (CLI) | payer OTHER, SELFPAY ==
[2024-06-15 13:44] LABS: Add Manual Diff / Slide Review NO; Basophils Absolute Auto 0 /uL (0-100); Basophils Percent Auto 0.6 % (0-2); Eosinophils Absolute Auto 0 /uL (0-450); Eosinophils Percent Auto 0.6 % (2-4); Hematocrit 43.4 % (41-53); Hemoglobin 14.6 g/dL (13.5-17.5); Lymphocytes Absolute Auto 1100 /uL (1100-4500); Lymphocytes Percent Auto 19.9 % (25-40); Mean Corpuscular HGB Conc 33.6 % (30-36); Mean Corpuscular Hemoglobin 30.9 PG (26-34); Mean Corpuscular Volume 91.8 fL (80-100); Monocytes Absolute Auto 300 /uL (0-900); Monocytes Percent Auto 5.3 % (3-14); Neutrophils Absolute Auto 4000 /uL (1500-7000); Neutrophils Percent Auto 73.6 % (50-75); Platelet Count 237 X10^3/uL (150-400); Red Blood Cell Count 4.73 X10^6/uL (4.5-5.9); Red Cell Distribution Width 13.8 % (11.6-14.8); White Blood Cell Count 5.4 X10^3/uL (4.5-11.0)
[2024-06-15 14:10] LABS: Alanine Aminotransferase 31 IU/L (<50); Albumin 4.7 g/dL (3.5-5.0); Albumin Globulin Ratio 2.2 (1.0-2.8); Alkaline Phosphatase 85 U/L (38-126); Aspartate Aminotransferase 33 IU/L (17-59); BUN Creatinine Ratio 15.4 (6-22); Bilirubin Total 0.4 mg/dL (0.2-1.3); Blood Urea Nitrogen 16 mg/dL (9-20); Calcium 9.6 mg/dL (8.4-10.2); Carbon Dioxide 31 mmol/L (22-32); Chloride 101 mmol/L (98-107); Estimated Glomerular Filt Rate > 60 mL/min (>60); Globulin 2.1 g/dL (1.7-4.1); Glucose 92 mg/dL (70-100); HEMOLYSIS < 15 (0-50); Potassium 4.4 mmol/L (3.4-5.1); Sodium 140 mmol/L (137-145); Total Protein 6.8 g/dL (6.3-8.2)
== END ==
PROVIDERS: PCP Family Medicine; Referring Provider Family Medicine; Visit Provider Family Medicine
DX: R74.01 Elevation of levels of liver transaminase levels (principal); E29.1 Testicular hypofunction; E55.9 Vitamin D deficiency, unspecified; G35 Multiple sclerosis; D64.89 Other specified anemias
CPT/HCPCS: 36415; 80053; 82306; 85025

== ENCOUNTER → 2024-10-22 10:10 | Outpatient (CLI) | payer OTHER, SELFPAY ==
[2024-10-22 11:44] LABS: Alanine Aminotransferase 31 IU/L (<50); Albumin 4.4 g/dL (3.5-5.0); Albumin Globulin Ratio 1.7 (1.0-2.8); Alkaline Phosphatase 84 U/L (38-126); Blood Urea Nitrogen 16 mg/dL (9-20); Calcium 8.9 mg/dL (8.4-10.2); Carbon Dioxide 30 mmol/L (22-32); Chloride 101 mmol/L (98-107); Estimated Glomerular Filt Rate > 60 mL/min (>60); Globulin 2.6 g/dL (1.7-4.1); Glucose 82 mg/dL (70-99); HEMOLYSIS 49 (0-50); Potassium 4.1 mmol/L (3.4-5.1); Sodium 139 mmol/L (137-145); Total Protein 7.0 g/dL (6.3-8.2)
[2024-10-22 12:14] LABS: Ferritin 58 ng/mL (18-464)
== END ==
PROVIDERS: PCP Family Medicine; Referring Provider Family Medicine; Visit Provider Family Medicine
DX: R74.01 Elevation of levels of liver transaminase levels (principal); E29.1 Testicular hypofunction; G25.81 Restless legs syndrome; G35 Multiple sclerosis
CPT/HCPCS: 36415; 80053; 82728; 84403